=== PATIENT | female | born 1965 | race Caucasian/White ===

== ENCOUNTER 2017-11-06 08:40 | Outpatient (CLI) | payer OTHER | END 2017-11-06 08:46 | disposition home or self-care (01) | LOC: LAB 08:40 | DX: E11.9 Type 2 diabetes mellitus without complications (principal); E78.2 Mixed hyperlipidemia; E03.4 Atrophy of thyroid (acquired) ==

== ENCOUNTER 2018-03-27 08:08 | Outpatient (CLI) | payer OTHER | END 2018-03-27 08:09 | disposition home or self-care (01) | LOC: RAD 08:08 | DX: I15.8 Other secondary hypertension (principal); I10 Essential (primary) hypertension ==